=== PATIENT | female | born 1995 | race Caucasian/White ===

== ENCOUNTER 2016-06-29 00:29 | Emergency (ER) | payer BC, OTHER ==
[~2016-06-29] VITALS: Ht 160 cm; Wt 81.6 kg
[2016-06-29 00:35] VITALS: BP 129/60
[2016-06-29] MEDS ORDERED: PRENATAL1 TA3 PO (00:35)
[2016-06-29 01:02] LABS: BASO % 0.1 % (0.0-1.0); EOS # 0.4 10*3/uL (0.0-0.4); HEMATOCRIT 37.6 % (37.0-47.0); HEMOGLOBIN 12.1 g/dl (12.0-16.0); LYMPH # 1.7 10*3/uL (1.3-4.4); LYMPH % 19.8 % (27.0-41.0); MEAN CELL VOLUME 79.2 fl (81.0-99.0); MEAN CORPUSCULAR HGB 25.5 pg (27.0-31.0); MEAN CORPUSCULAR HGB CONC 32.2 g/dl (33.0-37.0); MEAN PLATELET VOLUME 11.3 fl (9.6-12.3); MONO # 0.6 10*3/uL (0.1-1.0); MONO % 7.4 % (3.0-9.0); NEUT # 5.9 10*3/uL (2.3-7.9); NEUT % 68.5 % (47.0-73.0); PLATELET COUNT AUTOMATED 154 10*3/uL (130-400); RED BLOOD COUNT 4.75 10*6/uL (4.10-5.10); WHITE BLOOD COUNT 8.7 10*3/uL (4.8-10.8)
[2016-06-29 01:14] LABS: BILIRUBIN NEGATIVE (NEGATIVE); BLOOD 1+ (NEGATIVE); CLARITY SL CLOUDY (CLEAR); COLOR YELLOW (YELLOW); GLUCOSE NEGATIVE (NEGATIVE); KETONE NEGATIVE (NEGATIVE); LEUKO ESTERASE 1+ (NEGATIVE); NITRITE NEGATIVE (NEGATIVE); PH 6.5 (5.0-9.0); PROTEIN NEGATIVE (NEGATIVE); UROBILINOGEN 0.2 E.U./dl (0.2-1.0)
[2016-06-29 01:16] LABS: ALKALINE PHOSPHATASE 61 U/L (45-117); BILIRUBIN, TOTAL 0.2 mg/dl (0.2-1.0); BUN 7 mg/dl (7-24); CARBON DIOXIDE 26 mmol/L (21-32); CHLORIDE 108 mmol/L (98-107); EST GLOM FILT AFRICAN AMERICAN > 60 ml/min; GLUCOSE 81 mg/dL (65-99); POTASSIUM 3.7 mmol/L (3.5-5.1); SGOT/AST 8 IU/L (3-35); SGPT/ALT 12 U/L (12-78); SODIUM 141 mmol/L (136-145); TOTAL PROTEIN 6.8 gm/dL (6.4-8.2)
[2016-06-29 01:22] LABS: BACTERIA 3+; EPITHELIAL CELLS 15-20; URINE REFLEX COMMENT YES (NO)
[2016-06-29] MEDS ORDERED: MACROBID100 M1 PO (01:26)
== END 2016-06-29 01:51 | disposition home or self-care (01) ==
LOC: ED 00:29
PROVIDERS: Nurse Practitioner Family
DX: O23.42 Unspecified infection of urinary tract in pregnancy, second trimester (principal); Z3A.26 26 weeks gestation of pregnancy; Z79.899 Other long term (current) drug therapy; Z91.040 Latex allergy status

== ENCOUNTER 2016-08-31 23:23 | Emergency (ER) | payer BC, OTHER ==
[~2016-08-31] VITALS: Ht 162.5 cm; Wt 86.2 kg
[~2016-08-31 23:23] MED LIST: MACROBID100 M1 PO; PRENATAL1 TA3 PO
[2016-08-31 23:33] VITALS: BP 146/74
[2016-09-01 00:21] LABS: BASO % 0.1 % (0.0-1.0); EOS % 0.3 % (1.0-4.0); HEMATOCRIT 33.2 % (37.0-47.0); HEMOGLOBIN 10.6 g/dl (12.0-16.0); LYMPH # 1.4 10*3/uL (1.3-4.4); MEAN CELL VOLUME 73.8 fl (81.0-99.0); MEAN CORPUSCULAR HGB 23.6 pg (27.0-31.0); MEAN CORPUSCULAR HGB CONC 31.9 g/dl (33.0-37.0); MEAN PLATELET VOLUME 11.2 fl (9.6-12.3); MONO # 0.5 10*3/uL (0.1-1.0); MONO % 5.9 % (3.0-9.0); NEUT # 7.1 10*3/uL (2.3-7.9); NEUT % 78.3 % (47.0-73.0); PLATELET COUNT AUTOMATED 162 10*3/uL (130-400); RED CELL DISTRI WIDTH 14.3 % (0-14.5); WHITE BLOOD COUNT 9.1 10*3/uL (4.8-10.8)
[2016-09-01 00:36] LABS: ALBUMIN 2.6 gm/dl (3.1-4.5); ALKALINE PHOSPHATASE 114 U/L (45-117); BILIRUBIN, TOTAL 0.2 mg/dl (0.2-1.0); BUN 6 mg/dl (7-24); CARBON DIOXIDE 23 mmol/L (21-32); CHLORIDE 107 mmol/L (98-107); EST GLOM FILT AFRICAN AMERICAN > 60 ml/min; GLUCOSE 97 mg/dL (65-99); POTASSIUM 3.6 mmol/L (3.5-5.1); SGOT/AST 9 IU/L (3-35); SGPT/ALT 12 U/L (12-78); SODIUM 141 mmol/L (136-145); TOTAL PROTEIN 6.8 gm/dL (6.4-8.2)
[2016-09-01 02:39] LABS: BILIRUBIN NEGATIVE (NEGATIVE); BLOOD 3+ (NEGATIVE); CLARITY SL CLOUDY (CLEAR); COLOR YELLOW (YELLOW); GLUCOSE NEGATIVE (NEGATIVE); KETONE NEGATIVE (NEGATIVE); LEUKO ESTERASE TRACE (NEGATIVE); NITRITE NEGATIVE (NEGATIVE); PROTEIN TRACE (NEGATIVE); SPECIFIC GRAVITY >= 1.030 (1.005-1.030)
[2016-09-01 02:44] LABS: EPITHELIAL CELLS 45-50
[2016-09-01 02:45] LABS: BACTERIA 2+; URINE REFLEX COMMENT YES (NO)
== END 2016-09-01 03:17 | disposition home or self-care (01) ==
LOC: ED 23:23
PROVIDERS: Nurse Practitioner Family
DX: O23.43 Unspecified infection of urinary tract in pregnancy, third trimester (principal); O26.893 Other specified pregnancy related conditions, third trimester; R51 Headache; Z3A.34 34 weeks gestation of pregnancy; Z79.899 Other long term (current) drug therapy

== ENCOUNTER 2017-04-21 23:16 | Emergency (ER) | payer OTHER ==
[~2017-04-21] VITALS: Ht 157.4 cm; Wt 72.6 kg
[2017-04-21 23:23] VITALS: BP 119/70
[2017-04-21 23:55] LABS: BILIRUBIN NEGATIVE (NEGATIVE); BLOOD NEGATIVE (NEGATIVE); CLARITY CLEAR (CLEAR); COLOR YELLOW (YELLOW); GLUCOSE NEGATIVE (NEGATIVE); KETONE NEGATIVE (NEGATIVE); LEUKO ESTERASE 3+ (NEGATIVE); NITRITE NEGATIVE (NEGATIVE); PH 6.5 (5.0-9.0); SPECIFIC GRAVITY <= 1.005 (1.005-1.030); UROBILINOGEN 0.2 E.U./dl (0.2-1.0)
[2017-04-22 00:12] LABS: EPITHELIAL CELLS 35-40
[2017-04-22 00:15] LABS: WBC 31-40 wbc/hpf (0-5)
== END 2017-04-22 01:00 | disposition home or self-care (01) ==
LOC: ED 23:16
PROVIDERS: Physician Assistant
DX: O99.612 Diseases of the digestive system complicating pregnancy, second trimester (principal); K52.9 Noninfective gastroenteritis and colitis, unspecified; Z3A.22 22 weeks gestation of pregnancy; Z79.899 Other long term (current) drug therapy

== ENCOUNTER 2017-04-24 09:07 | Emergency (ER) | payer OTHER ==
[~2017-04-24] VITALS: Ht 157.4 cm; Wt 72.6 kg
[2017-04-24 09:11] VITALS: BP 138/88
[2017-04-24 09:45] LABS: BILIRUBIN NEGATIVE (NEGATIVE); BLOOD NEGATIVE (NEGATIVE); CLARITY CLEAR (CLEAR); COLOR YELLOW (YELLOW); GLUCOSE NEGATIVE (NEGATIVE); KETONE NEGATIVE (NEGATIVE); LEUKO ESTERASE 1+ (NEGATIVE); NITRITE NEGATIVE (NEGATIVE); SPECIFIC GRAVITY 1.015 (1.005-1.030); UROBILINOGEN 0.2 E.U./dl (0.2-1.0)
[2017-04-24 10:09] LABS: BACTERIA TRACE; MUCOUS 1+
[2017-04-24 10:38] LABS: BASO % 0.1 % (0.0-1.0); EOS # 0.1 10*3/uL (0.0-0.4); EOS % 1.2 % (1.0-4.0); HEMATOCRIT 33.8 % (37.0-47.0); HEMOGLOBIN 10.7 g/dl (12.0-16.0); LYMPH # 1.3 10*3/uL (1.3-4.4); LYMPH % 18.4 % (27.0-41.0); MEAN CELL VOLUME 77.7 fl (81.0-99.0); MEAN CORPUSCULAR HGB 24.6 pg (27.0-31.0); MEAN CORPUSCULAR HGB CONC 31.7 g/dl (33.0-37.0); MEAN PLATELET VOLUME 11.7 fl (9.6-12.3); MONO # 0.3 10*3/uL (0.1-1.0); MONO % 4.3 % (3.0-9.0); NEUT # 5.5 10*3/uL (2.3-7.9); NEUT % 75.9 % (47.0-73.0); PLATELET COUNT AUTOMATED 150 10*3/uL (130-400); RED BLOOD COUNT 4.35 10*6/uL (4.10-5.10); RED CELL DISTRI WIDTH 14.5 % (0-14.5); WHITE BLOOD COUNT 7.2 10*3/uL (4.8-10.8)
[2017-04-24 10:51] LABS: BUN 4 mg/dl (7-24); CHLORIDE 107 mmol/L (98-107); CREATININE 0.41 mg/dL (0.55-1.02); POTASSIUM 3.6 mmol/L (3.5-5.1); SODIUM 138 mmol/L (136-145)
== END 2017-04-24 12:47 | disposition home or self-care (01) ==
LOC: ED 09:07
PROVIDERS: Emergency Medicine
DX: O26.892 Other specified pregnancy related conditions, second trimester (principal); R10.9 Unspecified abdominal pain; Z3A.22 22 weeks gestation of pregnancy

== ENCOUNTER 2019-03-15 12:44 | Emergency (ER) | payer OTHER ==
[~2019-03-15] VITALS: Ht 157.4 cm; Wt 72.6 kg
[2019-03-15 12:44] VITALS: BP 129/92
[2019-03-15] MEDS ORDERED: JUNEL 1 MG-201 EACH PO (12:47)
[2019-03-15] MEDS ORDERED: Tobrex Ophth S2.5 ML OPH (13:49)
== END 2019-03-15 14:52 | disposition home or self-care (01) ==
LOC: ED 12:44
DX: H10.89 Other conjunctivitis (principal); Z79.899 Other long term (current) drug therapy